=== PATIENT | male | born 1975 | race Caucasian/White ===

== ENCOUNTER 2020-05-13 13:24 | Outpatient (CLI) | payer OTHER ==
--- NOTE | 2020-05-13 14:14 | SLEEP CARE CONSULTATION ---
Information from patient questionnaire entered by Charity Luis. I have reviewed and concur with the information entered by Charity Luis. This document represents the service I personally performed and the decisions made by me, Katie Jones ARNP. History of Present Illness Service Date and Time: 05/13/2020 1324 Reason for Visit: New patient Chief Complaint: reports: Unrefreshed sleep, Snoring, Excessive daytime sleepiness, Observed pauses in breathing, Frequent awakenings at night (sometimes). denies: Insomnia, Fatigue Date of Onset: 2009 Usual bedtime: 2100 Time it takes to fall asleep: 1-3 Minutes Snores at night: Yes Observed to quit breathing while asleep: Yes Sleeps alone due to snoring: No Number of times waking at night: 3-4 Reasons for waking at night: reports: Choking, Snoring, Bathroom. denies: Gasping for air Toss, Turn, or Twitch while sleeping: Yes Recalls having dreams: Yes Usually gets out of bed at: [id number] Feels refreshed in the morning: No Morning headache: No Sleepy or fatigued during the day: Yes Ever fallen asleep while driving: No (no drowsy driving) Takes day naps: No Dreams during day naps: No Prior sleep studies: No Additional HPI information: I had the pleasure of seeing ROBB DESOUZA today regarding the possibility of him having a sleep disorder. His current complaints are snoring, daytime sleepiness, and unrefreshed sleep. He is looking at retiring from the [employer] and wants to take care of his sleeping issues. His is always waking him up due to snoring loudly and pauses in breathing when he is sleeping. He states he has been meaning to have an evaluation for many years. His father has BRADEN and is on a CPAP machine. - Parasomnia Symptoms Ever been unable to move upon waking from sleep: Yes (last time when in his 20s) Walks in sleep: No Talks in sleep: Yes Ever acted out dreams in sleep: Yes (twitches a lot during sleep) Ever felt weak in the knees when startled or emotional: No Bothered by creepy, crawly, restless sensations in legs: No Problems with memory or concentration: No Subjective Initial [place] Sleepiness Scale score: 14 Past Medical History Past Medical History: reports: Hypothyroidism, Other (thyroid cancer (thyroid removed)). 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 Patient is and lives in [place]. Have you smoked in the past 12 months: No Alcohol use: Yes Alcohol amount and frequency: 6 pack/week Caffeine use: Yes Caffeine amount and frequency: 1 cup/day Family History Family history of sleep disordered breathing: Yes Family Hx Sleep Apnea: Father: Snoring, Sleep apnea - Treated Allergies and Home Medications Drug allergies reviewed: Yes (NKDA) Home medication list reviewed: Yes Allergy and home medication list: Synthroid 150 mcg Review of Systems Weight gain over past 5 years: 5 Cardiovascular: denies: high blood pressure, palpitations, chest pain, irregular heart rate or pulse, leg or foot swelling Respiratory: denies: shortness of breath Gastrointestinal: denies: heartburn, difficulty swallowing Urinary: denies: impotence Neurological: denies: headaches, seizure, head trauma, speech dysfunction, gait or balance problems Psychiatric: denies: anxiety, depression, mood disorder, claustrophobia Ear/Nose/Throat: reports: dry mouth/throat (sometimes in the mornings; drinks water), wisdom teeth removed. denies: nasal congestion, sinus problems, nose bleeds, injury to nose, tonsillectomy Endocrine: reports: other (thyroid cancer) Musculoskeletal: denies: joint pain, back pain, muscle pain or cramping, mobility problems Immunologic: denies: allergies to food or environment Physical Exam Blood Pressure: 132/70 Cuff size: long Heart Rate: 84 O2 Saturation: 98 Height: 5 ft 6 in Weight: 195 lb Body Mass Index: 31.4 BMI Classification: Obese Neck circumference: 17 (inches) HEENT: No craniofacial malformation Nostrils: patent to airflow Turbinates: normal Septum: midline Mouth and throat: narrow oropharynx Soft palate: normal Hard palate: normal Uvula: normal Uvula visualization: 50% Mallampati Class II Tongue: enlarged in size with teeth martínez on lateral edges Tonsils: 2+ Chin and jaw: normal size and position Neck: normal w/o lymphadenopathy or thyromegaly Heart: regular rate and rhythm Lungs: clear bilaterally Impression and Plan 1. Suspected Obstructive Sleep Apnea-Hypopnea Syndrome, as suggested by a history of loud and irregular snoring, observed cessation of breath while asleep, gasping or choking in sleep, frequent awakening during the night, un refreshed sleep, and excessive daytime sleepiness. I reviewed with patient that a narrow oropharynx and obesity are common predisposing factors for obstructive sleep apnea-hypopnea syndrome. 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 I recommend proceeding to polysomnography to confirm the diagnosis and to assess severity. If the patient has significant sleep disordered breathing, a manual CPAP titration study will also be performed to find the optimal treatment pressure. I informed the patient of what the sleep studies involve and after some discussion, obtained agreement to proceed. The pathophysiology of obstructive sleep apnea-hypopnea syndrome was discussed with the patient and health risks of cardiovascular and cerebrovascular disease if not treated. AAS brochure for obstructive sleep apnea-hypopnea syndrome given and reviewed. Risks of drowsy driving discussed in detail and patient advised to avoid long distance driving and to bleach boiler puller at the first sign of drowsiness. Patient agreed to plan. * Schedule polysomnography +- manual CPAP titration study. * Avoid long distance driving or driving when feeling sleepy. * Avoid alcohol, sedative and muscle relaxant around bedtime. * Attempt to lose weight. * Review instructions provided by trained office staff on how to prepare for the sleep study. * Return for follow-up after sleep study completed. Visit Type: In Office Provider Statement: I spent 100% of the Face to Face Visit with the patient with greater than 50% spent counseling the patient and coordination of care.
[2020-05-13 14:15] VITALS: BP 132/70
== END 2020-05-13 13:25 | disposition home or self-care (01) ==
LOC: SC 13:24
PROVIDERS: ATTEND Nurse Practitioner Family
DX: R06.83 Snoring (principal); G47.10 Hypersomnia, unspecified; G47.8 Other sleep disorders; R06.81 Apnea, not elsewhere classified; E66.9 Obesity, unspecified; Z68.31 Body mass index [BMI] 31.0-31.9, adult
CPT/HCPCS: 99204; 99212

== ENCOUNTER 2020-06-08 19:30 | Outpatient (CLI) | payer OTHER | END 2020-06-09 11:45 | disposition home or self-care (01) | LOC: SC 19:30 | PROVIDERS: ATTEND Nurse Practitioner Family | DX: R09.02 Hypoxemia (principal); R00.0 Tachycardia, unspecified; R06.83 Snoring; G47.10 Hypersomnia, unspecified; G47.8 Other sleep disorders; R06.81 Apnea, not elsewhere classified; E66.3 Overweight; Z68.31 Body mass index [BMI] 31.0-31.9, adult | CPT/HCPCS: 95806 ==

== ENCOUNTER 2020-06-11 14:16 | Outpatient (CLI) | payer OTHER ==
--- NOTE | 2020-06-11 14:43 | SLEEP CARE CONSULTATION ---
Information from patient questionnaire entered by Shadia Oliveira. I have reviewed and concur with the information entered by Shadia Oliveira. This document represents the service I personally performed and the decisions made by , Katie Jones ARNP. History of Present Illness Service Date and Time: 06/11/20201415 Initial [place] Sleepiness Scale score: 14 (in 2019) Current [place] Sleepiness Scale score: 11 Additional HPI information: ROBB DESOUZA returns for follow up and results of the recently performed home sleep study. The patient was informed of the following findings: Patient has no significant sleep disordered breathing with an AHI 3.4 and iker oxygen saturation of 87% and average oxygen 92%. He has mild hypoxia and mild tachycardia peaking at 123 beats per minute. I explained the pathophysiology behind obstructive sleep apnea. Patient does not have sleep apnea and was advised how weight gain could increase the risk of developing sleep apnea in the future. I strongly encouraged the patient to lose weight. Patient has light snoring. Snoring can be reduced by weight loss. Weight loss is best achieved with diet consult. Patient instructed to contact PCP for referral. Snoring can also be treated with an oral appliance from a dentist. Advised to check insurance coverage. In addition, an ENT evaluation can be do to see if other treatment is indicated. Patient counseled not drink alcohol less than 4 h ours before bedtime as it can increase snoring and apnea. Patient was cautioned about risks of drowsy driving until sleepiness symptoms resolve. Sleep Study - Results Type of Sleep Study: Home sleep study Prior sleep studies: No Polysomnography/Home Sleep Study results: Physician Impression: The quality of the study is good. The length of the study is adequate (> 240 minutes). Please also see the tabulated and graphic data. 1. No significant sleep-disordered breathing, with an AHI of 3.4/hr and iker SaO2 of 87%. During the study, the patient had 9 apneas (8 obstructive, 1 central, 0 mixed) and 24 hypopneas. The longest episode lasted 81.0 seconds. The few respiratory events occurred more frequently during supine sleep (supine AHI was 4.0 and non-supine, 1.31). 2. Hypoxemia (ICD-10 R09.02), mild, with the lowest oxygen saturation of 87 % and 13.1 minutes with SaO2 under 90%. Baseline oxygen saturation was normal (Average oxygen saturation was 92%). 3. Tachycardia, mild, with maximum recoded heart rate of 123 beats per minute. Allergies and Home Medications Drug allergies reviewed: Yes (NKDA) Home medication list reviewed: Yes (no changes) Review of Systems Review of systems same as previous: Yes (no changes) Physical Exam Heart Rate: 70 O2 Saturation: 98 Height: 5 ft 6 in Weight: 185 lb Body Mass Index: 29.8 BMI Classification: Overweight Impression and Plan 1. Snoring but no significant sleep disordered breathing. Patient advised that often weight loss will reduce snoring as well as apnea risk. An oral appliance can also be used for snoring. This would require a dental consultation. Patient cautioned not to use other online appliances as can cause bite issues. Patient is advised to check if insurance will cover. An ENT consult can also be helpful to determine if any other treatment is an option. An [facility] pamphlet of How to Sleep Better was given and explained. 2. Tachycardia, mild. He had some mild elevated heart rate to 123 beats per minute during HST. He does have hypothyroidism due to thyroid cancer surgery. He just had an adjustment to his thyroid medications and this elevation may be due to thyroid levels. He was advised to follow up with PCP for his mild tachycardia. * Follow up with PCP for mild tachycardia as needed. * Attempt to lose weight and maintain a healthy weight * Avoid alcohol consumption near bedtime * The patient is cautioned about driving until sleepiness is completely resolved. * Return as needed if his symptoms worsen or change. Counseling Topics: Weight loss health impact Visit Type: In Office Time Spent with Patient (minutes): 17 Provider Statement: I spent 100% of the Face to Face Visit with the patient with greater than 50% spent counseling the patient and coordination of care.
== END 2020-06-11 14:17 | disposition home or self-care (01) ==
LOC: SC 14:16
PROVIDERS: ATTEND Nurse Practitioner Family
DX: R06.83 Snoring (principal); R00.0 Tachycardia, unspecified; E66.3 Overweight; Z68.29 Body mass index [BMI] 29.0-29.9, adult
CPT/HCPCS: 99212; 99213